=== PATIENT | female | born 1975 | race Caucasian/White ===

== ENCOUNTER 2017-08-25 13:53 | Emergency (ER) | payer OTHER ==
[~2017-08-25] VITALS: Ht 170.1 cm; Wt 74.8 kg
[~2017-08-25 13:53] MED LIST: AMOXICILLIN500 M2 PO; AUGMENTIN 875875 MG PO; CHERATUSSIN AC120 ML PO; FLEXERIL10 MG PO; FLONASE ALLERG9.9 ML NAS; MOTRIN800 MG PO; PREDNICOT20 MG PO; ROBITUSSIN AC 110 ML PO
[2017-08-25] MEDS ORDERED: Motrin,Rufen800 MG PO (15:32)
== END 2017-08-25 15:06 | disposition home or self-care (01) ==
LOC: ED 13:53
DX: S86.911A Strain of unspecified muscle(s) and tendon(s) at lower leg level, right leg, initial encounter (principal); X58.XXXA Exposure to other specified factors, initial encounter; Y93.89 Activity, other specified; Y92.89 Other specified places as the place of occurrence of the external cause; Y99.8 Other external cause status

== ENCOUNTER → 2018-06-24 | Outpatient (CLI) | payer OTHER ==
[~2018-06-24] MED LIST changes: +Motrin,Rufen800 MG PO
== END | disposition home or self-care (01) ==
LOC: MAMMO 07:23
DX: Z12.31 Encounter for screening mammogram for malignant neoplasm of breast (principal)

== ENCOUNTER → 2020-04-30 | Outpatient (CLI) | payer SELFPAY | END | disposition home or self-care (01) | LOC: COVID19 13:32 | PROVIDERS: ATTEND Student in an Organized Health Care Education/Training Program | DX: Z20.822 Contact with and (suspected) exposure to COVID-19 (principal) ==

== ENCOUNTER 2021-01-08 14:02 | Emergency (ER) | payer OTHER ==
[~2021-01-08] VITALS: Ht 170.1 cm; Wt 77.1 kg
== END 2021-01-08 21:00 | disposition left against medical advice (07) ==
LOC: ED 14:02
DX: R51.9 Headache, unspecified (principal); H57.13 Ocular pain, bilateral; R43.8 Other disturbances of smell and taste; Z53.21 Procedure and treatment not carried out due to patient leaving prior to being seen by health care provider

== ENCOUNTER 2021-10-21 11:56 | Emergency (ER) | payer OTHER ==
[~2021-10-21] VITALS: Ht 170.1 cm; Wt 81.6 kg
[2021-10-21] MEDS ORDERED: PREDNISONE10 MG PO (12:07)
== END 2021-10-21 12:16 | disposition home or self-care (01) ==
LOC: ED 11:56
DX: L23.7 Allergic contact dermatitis due to plants, except food (principal)

== ENCOUNTER → 2022-06-19 | Outpatient (CLI) | payer OTHER ==
[~2022-06-19] MED LIST changes: +PREDNISONE10 MG PO
[2022-06-19 08:34] LABS: BASO % 0.6 % (0.0-1.0); EOS # 0.2 10*3/uL (0.0-0.4); EOS % 2.9 % (1.0-4.0); HEMATOCRIT 37.2 % (37.0-47.0); LYMPH # 1.4 10*3/uL (1.3-4.4); LYMPH % 19.8 % (27.0-41.0); MEAN CELL VOLUME 85.7 fl (81.0-99.0); MEAN CORPUSCULAR HGB 27.4 pg (27.0-31.0); MEAN PLATELET VOLUME 10.4 fl (9.6-12.3); MONO # 0.7 10*3/uL (0.1-1.0); MONO % 10.5 % (3.0-9.0); NEUT # 4.6 10*3/uL (2.3-7.9); NEUT % 65.9 % (47.0-73.0); PLATELET COUNT AUTOMATED 275 10*3/uL (130-400); RED BLOOD COUNT 4.34 10*6/uL (4.10-5.10); RED CELL DISTRI WIDTH 13.9 % (0-14.5); RETICULOCYTE % 1.61 % (0.50-2.50); WHITE BLOOD COUNT 6.9 10*3/uL (4.8-10.8)
[2022-06-19 08:37] LABS: BILIRUBIN Negative (Negative); BLOOD Negative (Negative); CLARITY Cloudy (Clear); COLOR Yellow (Yellow); GLUCOSE Negative (Negative); KETONE Negative (Negative); LEUKO ESTERASE 1+ (Negative); NITRITE Negative (Negative); SPECIFIC GRAVITY 1.025 (1.001-1.030)
[2022-06-19 08:48] LABS: BACTERIA 2+; EPITHELIAL CELLS TNTC
[2022-06-19 09:52] LABS: ALKALINE PHOSPHATASE 101 U/L (46-116); BUN 14 mg/dl (9-23); CHLORIDE 107 mmol/L (98-107); CHOLESTEROL 143 mg/dL (<200); GAMMA GLUTAMYL TRANSPEPTIDASE 11 U/L (0-73); LDL CHOLESTEROL 82 mg/dL (9-159); POTASSIUM 4.5 mmol/L (3.4-5.1); SGPT/ALT 32 U/L (10-49); T3 UPTAKE 25.7 % (22.4-36.7); THYROID STIM HORMONE (HS) 1.139 uIU/ml (0.550-4.780); THYROXINE (T4) TOTAL 6.4 ug/dl (4.5-10.9); TOTAL PROTEIN 7.1 gm/dL (6.0-8.0); TRIGLYCERIDES 53 mg/dl (<150)
[2022-06-19 11:21] LABS: VITAMIN D, 25-HYDROXY 21.2 ng/mL (30-100)
== END | disposition home or self-care (01) ==
LOC: LAB 08:08
PROVIDERS: ATTEND Family Medicine
DX: E78.5 Hyperlipidemia, unspecified (principal); E55.9 Vitamin D deficiency, unspecified; R79.89 Other specified abnormal findings of blood chemistry; R53.83 Other fatigue; R74.8 Abnormal levels of other serum enzymes

== ENCOUNTER 2023-09-09 20:37 | Emergency (ER) | payer OTHER ==
[~2023-09-09] VITALS: Ht 170.1 cm; Wt 72.6 kg
== END 2023-09-09 22:51 | disposition home or self-care (01) ==
LOC: ED 20:37
DX: L85.2 Keratosis punctata (palmaris et plantaris) (principal); Z79.899 Other long term (current) drug therapy